=== PATIENT | male | born 1960 | race American Indian/Alaskan Native ===

== ENCOUNTER 2021-07-20 08:10 | Emergency (ER) | payer MEDICAID ==
[2021-07-20 08:52] VITALS: BP 155/85
[2021-07-20 09:27] LABS: Bilirubin,Urine NEG (Negative); Blood,Urine NEG (Negative); Color,Urine Yellow (Yellow); Mucus,Urine FEW /HPF; Protein,Urine <15 mg/dL mg/dL (Negative); Urobilinogen,Urine < 2.0 mg/dL (<2.0)
[2021-07-20 09:57] LABS: Basophils % (Auto) 0.4 % (0.0-1.8); Eosinophils # (Auto) 0.1 K/mm3 (0.0-0.4); Eosinophils % (Auto) 1.5 % (0.0-4.3); Hematocrit 35.1 % (35.5-45.6); Hemoglobin 11.3 gm/dl (11.8-15.2); Lymphocytes # (Auto) 2.1 K/mm3 (1.2-5.4); Lymphocytes % (Auto) 37.5 % (13.4-35.0); Mean Corpuscular HGB Conc 32 % (32-34); Mean Corpuscular Volume 76 fl (84-94); Monocytes # (Auto) 0.7 K/mm3 (0.0-0.8); Monocytes % (Auto) 11.7 % (0.0-7.3); Platelet Count 298 K/mm3 (140-440); Red Blood Count 4.59 M/mm3 (3.65-5.03); Red Cell Distribution Width 16.5 % (13.2-15.2)
[2021-07-20 10:17] LABS: Albumin 4.2 g/dL (3.9-5); Calcium 9.6 mg/dL (8.4-10.2)
--- NOTE | 2021-07-20 14:10 | Cat Scan Report ---
CT ABDOMEN AND PELVIS WITHOUT AND WITH INTRAVENOUS CONTRAST INDICATION / CLINICAL INFORMATION: Right lower abdominal pain radiating to flank. TECHNIQUE: 100 cc Omnipaque [address] scans at this location are performed using CT d ose reduction for ALARA by means of automated exposure control. COMPARISON: None available. FINDINGS: ABDOMEN: Noncontrast images demonstrate no evidence of urinary tract calculus. There are mild atheros clerotic calcifications involving the abdominal aorta. There is symmetric renal excretion bilaterally postcontrast. There is no evidence of a renal mass or hydronephrosis. The liver, spleen, gallbladder, bile ducts, pancreas, adrenal glands and bowel demonstrate no signifi cant abnormality. No adenopathy is present. No acute vascular abnormality is seen. There is mild biba silar dependent atelectasis. There is a 1.9 cm thin-walled cyst in the right posterior lung base. PELVIS: The distal ureters and urinary bladder are normal. The prostate gland is mildly enlarged. The seminal vesicles are normal in appearance. The appendix is surgically absent. There is no evidence of diverticulitis. No abnormal mass or fluid collection is seen. I do not identify a hernia. There is mild spondylosis. IMPRESSION: No acute abnormality is identified. Signer Name: Len Balderas MD Signed: 07/20/2021 2:05 PM Workstation Name: [id number]
--- NOTE | 2021-07-20 14:34 | Emergency Department Report ---
ED Abdominal Pain HPI - General Chief Complaint: Abdominal Pain Stated Complaint: LOWER PAIN STOMACH Source: patient Mode of arrival: Ambulatory Limitations: No Limitations - History of Present Illness Initial Comments: 60-year-old male presents to the ED complaining of abdominal pain x3 days. Patient denies any chest pain or shortness of breath. Patient denies any nausea vomiting or diarrhea. Patient is alert and oriented x3. He states that he took some Maalox with mild relief. Patient states last BM was yesterday. No acute distress noted. No ill appearance noted. MD Complaint: abdominal pain Onset/Timin -: days(s) Location: diffuse Radiation: none Severity scale (0 -10): 4 Consistency: intermittent Improves With: nothing Worsens With: nothing Associated Symptoms: denies other symptoms - Related Data Allergies Allergy/AdvReac Type Severity Reaction Status Date / Time No Known Allergies Allergy Unverified 07/20/21 08:50 ED Review of Systems ROS: Stated complaint: LOWER PAIN STOMACH Other details as noted in HPI Constitutional: denies: chills, fever Eyes: denies: eye pain, eye discharge, vision change ENT: denies: ear pain, throat pain Respiratory: denies: cough, shortness of breath, wheezing Cardiovascular: denies: chest pain, palpitations Endocrine: no symptoms reported Gastrointestinal: abdominal pain. denies: nausea, diarrhea Genitourinary: denies: urgency, dysuria Musculoskeletal: denies: back pain, joint swelling, arthralgia Skin: denies: rash, lesions Neurological: denies: headache, weakness, paresthesias Psychiatric: denies: anxiety, depression Hematological/Lymphatic: denies: easy bleeding, easy bruising ED Past Medical Hx - Past Medical History Previous Medical History?: Yes Hx Hypertension: Yes - Surgical History Past Surgical History?: Yes Hx Appendectomy: Yes ED Physical Exam - General Limitations: No Limitations General appearance: alert, in no apparent distress - Head Head exam: Present: atraumatic, normocephalic - Eye Eye exam: Present: normal appearance - ENT ENT exam: Present: mucous membranes moist - Neck Neck exam: Present: normal inspection - Respiratory Respiratory exam: Present: normal lung sounds bilaterally. Absent: respiratory distress - Cardiovascular Cardiovascular Exam: Present: regular rate, normal rhythm. Absent: systolic murmur, diastolic murmur, rubs, gallop - GI/Abdominal GI/Abdominal exam: Present: soft, normal bowel sounds - Rectal Rectal exam: Present: deferred - Extremities Exam Extremities exam: Present: normal inspection - Back Exam Back exam: Present: normal inspection - Neurological Exam Neurological exam: Present: alert, oriented X3 - Psychiatric Psychiatric exam: Present: normal affect, normal mood - Skin Skin exam: Present: warm, dry, intact, normal color. Absent: rash ED Course Vital Signs 07/20/21 08:50 Temperature 98.4 F Pulse Rate 85 Respiratory 20 Rate Blood Pressure 155/85 [Right] O2 Sat by Pulse 96 Oximetry ED Medical Decision Making - Lab Data Result diagrams: 07/20/21 09:14 07/20/21 09:14 - Medical Decision Making 60-year-old male presents to the ED complaining of abdominal pain x3 days. Patient denies any chest pain or shortness of breath. Patient denies any nausea vomiting or diarrhea. Patient is alert and oriented x3. He states that he took some Maalox with mild relief. Patient states last BM was yesterday. No acute distress noted. No ill appearance noted. Physical examination is unremarkable. Patient has tenderness noted to the left lower quadrant upon examination. CT report shows no abnormality. Rechecked the patient is resting quietly quietly and comfortable and feeling better. I discussed the results of diagnostic study, my clinical impression and the plan for further treatment with the patient. Patient agrees with plan and discharge at this present time. All question addressed. I have given the patient instruction regarding a diagnosis ,expectation ,follow- up and return precaution. I explained to the patient that emergent condition may arise and to return to the ED for new worsen and any new persisting condition. I have explained the importance of following up with the primary care physician or referral physician listed below has instructed. The patient verbalized understanding of discharge instruction. Critical care attestation.: If time is entered above; I have spent that time in minutes in the direct care of this critically ill patient, excluding procedure time. ED Disposition Clinical Impression: Abdominal pain Qualifiers: Abdominal location: generalized Qualified Code(s): R10.84 - Generalized abdominal pain Disposition: HOME / SELF CARE / HOMELESS Is pt being admited?: No Does the pt Need Aspirin: No Condition: Stable Instructions: Abdominal Pain, Adult, [id number] Additional Instructions: Return to the ED for any worsening symptom Referrals: [facility] [Primary Care Provider] - 3-5 Days [facility] [Provider Group] - 3-5 Days Time of Disposition: 14:35
== END 2021-07-20 14:59 | disposition home or self-care (01) ==
LOC: ED 08:10
DX: R10.84 Generalized abdominal pain (principal); I10 Essential (primary) hypertension; Z90.89 Acquired absence of other organs
CPT/HCPCS: 36415; 74178; 80053; 81001; 83690; 85025; 99284; Q9967